=== PATIENT | female | born 1985 | race Caucasian/White ===

== ENCOUNTER 2018-08-31 01:42 | Observation (INO) | payer SELFPAY ==
[~2018-08-31] VITALS: Ht 177.8 cm; Wt 64.0 kg
[2018-08-31] VITALS (568 sets, daily range): BP systolic 94–138; BP diastolic 57–82; PULSE 84–100; TEMP 97.6–98.3; O2SAT 70–100
[2018-08-31 03:13] LABS: BASO % 0.3 % (0.0-2.0); EOS # 0.2 (0.0-0.7); EOS % 1.8 % (0-4.0); GRAN # 4.3 (1.4-6.5); HEMATOCRIT 55.3 % (37.0-47.0); HEMOGLOBIN 18.8 g/dl (12.5-16.0); LYMPH # 5.1 (1.2-3.4); LYMPH % 47.8 % (20.0-51.0); MEAN CELL VOLUME 96 fl (80.0-100.0); MEAN CORPUSCULAR HEMOGLOBIN 33 pg (27.0-31.0); MEAN CORPUSCULAR HGB CONC 34 g/dl (33.0-37.0); MONO % 9.6 % (1.7-9.3); PLATELET COUNT 448 K/mm3 (130-400); RED BLOOD COUNT 5.74 M/mm3 (4.10-5.30); REDCELL DISTRIBUTION WIDTH-CV 12.6 % (11.5-14.5)
[2018-08-31 03:15] LABS: BILIRUBIN,TOTAL 0.3 mg/dL (0.0-1.0); CALCIUM 8.4 mg/dL (8.4-10.2); CREATININE, serum 0.83 mg/dL (0.52-1.25); POTASSIUM 3.2 mmol/L (3.4-5.0); TOTAL PROTEIN 7.1 gm/dL (6.4-8.2)
[2018-08-31 03:29] LABS: BAND 2 % (0-10); BASOPHIL 1 % (0-2); EOSINOPHIL 2 % (0-4); LYMPHOCYTE 49 % (20.0-51.0); NEUTROPHILS 39 % (42.0-75.2); PLATELET ESTIMATE INCREASED (NORMAL)
[2018-08-31] MEDS ORDERED: ZYRTEC 10MG10 MG PO (14:39)
[2018-08-31] MEDS ORDERED: ZANTAC 150MG T150 MG PO (14:39)
[2018-08-31] MEDS ORDERED: PREDNISONE20 MG PO (14:40)
[2018-08-31] MEDS ORDERED: BENADRYL25 M2 PO (14:41)
== END 2018-08-31 15:29 | disposition home or self-care (01) ==
LOC: COL.ER 01:42 → ICU 03:00
PROVIDERS: Emergency Medicine
DX: T78.3XXA Angioneurotic edema, initial encounter (principal); F17.210 Nicotine dependence, cigarettes, uncomplicated
CPT/HCPCS: G0378; J0171; J1100; J1200; J2920; J7030

== ENCOUNTER 2019-08-10 20:50 | Emergency (ER) | payer BC ==
[~2019-08-10] VITALS: Ht 177.8 cm; Wt 65.9 kg
[~2019-08-10 20:50] MED LIST: BENADRYL25 M2 PO; PREDNISONE20 MG PO; ZANTAC 150MG T150 MG PO; ZYRTEC 10MG10 MG PO
[2019-08-10 20:57] VITALS: TEMP 98.7
[2019-08-10] MEDS ORDERED: PREDNISONE20 MG PO (22:04)
[2019-08-10 22:38] VITALS: BP 115/83; PULSE 85
== END 2019-08-10 22:39 | disposition home or self-care (01) ==
LOC: COL.ER 20:50
DX: T78.40XA Allergy, unspecified, initial encounter (principal)
CPT/HCPCS: J1200; J2930

== ENCOUNTER → 2019-10-05 | Outpatient (CLI) | payer BC | LOC: COL.LAB 13:09 | DX: T78.00XD Anaphylactic reaction due to unspecified food, subsequent encounter (principal) ==